=== PATIENT | male | born 1985 | race African-American/Black ===

== ENCOUNTER 2019-02-28 14:26 | Inpatient (IN) | payer OTHER ==
[2019-02-28 14:57] VITALS: BMI 24.3
--- NOTE | 2019-02-28 17:03 | HP ---
CIWA Score Nausea/Vomitin-Mild Nausea/No Vomiting Muscle Tremors: 2 Anxiety: 2 Agitation: 1-Slight > Activity Paroxysmal Sweats: 1-Minimal Palms Moist Orientation: 0-Oriented Tacttile Disturbances: 3-Moderate Itch/Numb/Burn Auditory Disturbances: 0-None Visual Disturbances: 1-Very Mild Sensitivity Headache: 1-Very Mild CIWA-Ar Total Score: 12 - Admission Criteria OASAS Guidelines: Admission for Medically Managed Detox: Requires at least one of the followin. CIWA greater than 12 2. Seizures within the past 24 hours 3. Delirium tremens within the past 24 hours 4. Hallucinations within the past 24 hours 5. Acute intervention needed for co occurring medical disorder 6. Acute intervention needed for co occurring psychiatric disorder 7. Severe withdrawal that cannot be handled at a lower level of care (continued vomiting, continued diarrhea, abnormal vital signs) requiring intravenous medication and/or fluids 8. Admission ROS [facility] Chief Complaint: Withdrawal Allergies/Adverse Reactions: Allergies Allergy/AdvReac Type Severity Reaction Status Date / Time No Known Allergies Allergy Verified 02/28/19 14:44 History of Present Illness: 33 y.o. man with an 5 year history of alcohol dependence is here seeking his first admission to detox. Does not have a significant period of sobriety. Exam Limitations: No Limitations - Ebola screening Have you traveled outside of the country in the last 21 days: No Have you had contact with anyone from an Ebola affected area: No - Review of Systems Constitutional: Chills EENT: reports: Tearing Respiratory: reports: No Symptoms reported Cardiac: reports: No Symptoms Reported GI: reports: No Symptoms Reported : reports: No Symptoms Reported Musculoskeletal: reports: Back Pain Integumentary: reports: No Symptoms Reported Neuro: reports: Numbness Endocrine: reports: No Symptoms Reported Hematology: reports: No Symptoms Reported Psychiatric: reports: Anxious, Depressed Other Systems: Reviewed and Negative Patient History - Patient Medical History Hx Anemia: No Hx Asthma: No Hx Chronic Obstructive Pulmonary Disease (COPD): No Hx Cancer: No Hx Cardiac Disorders: No Hx Congestive Heart Failure: No Hx Hypertension: No Hx Hypercholesterolemia: No Hx Pacemaker: No HX Cerebrovascular Accident: No Hx Seizures: No Hx Dementia: No Hx Diabetes: No Hx Gastrointestinal Disorders: No Hx Liver Disease: No Hx Genitourinary Disorders: No Hx Sexually Transmitted Disorders: No Hx Renal Disease (ESRD): No Hx Thyroid Disease: No Hx Human Immunodeficiency Virus (HIV): No Hx Hepatitis C: No Hx Depression: Yes Hx Suicide Attempt: No Hx Bipolar Disorder: No Hx Schizophrenia: No - Patient Surgical History Past Surgical History: No - PPD History Previous Implant?: No Documented Results: Negative w/o proof - Reproductive History Patient is a Female of Child Bearing Age (11 -55 yrs old): No - Smoking Cessation Smoking history: Current every day smoker Have you smoked in the past 12 months: Yes Aproximately how many cigarettes per day: 10 Initiated information on smoking cessation: Yes 'Breaking Loose' booklet given: 02/28/19 - Substance & Tx. History Hx Alcohol Use: Yes Hx Substance Use: Yes Substance Use Type: Alcohol, Marijuana Hx Substance Use Treatment: No - Substances abused Alcohol Substance route: Oral Frequency: 3-6 times per week Amount used: 1 pint of henessey; 2 cans of beer (24 ounces Age of first use: 27 Date of last use: 02/27/19 Marijuana/Hashish Substance route: Smoking Frequency: 3-6 times per week Amount used: 1 blunt Age of first use: 14 Date of last use: 02/27/19 Family Disease History - Family Disease History Family Disease History: Diabetes: Grandparent (Alcohol dependence ), Other: Grandparent, Father (Alcohol dependence) Admission Physical Exam S - Vital Signs Vital Signs: Vital Signs - 24 hr 02/28/19 02/28/19 14:38 16:33 Temperature 97.4 F L 97.4 F L Pulse Rate 85 85 Respiratory 20 20 Rate Blood Pressure 136/78 136/78 - Physical General Appearance: Yes: Nourished, Appropriately Dressed HEENTM: Yes: Hearing grossly Normal, Normocephalic Respiratory: Yes: Lungs Clear, Normal Breath Sounds, No Respiratory Distress, No Accessory Muscle Use Neck: Yes: No masses,lesions,Nodules Breast: Yes: Breast Exam Deferred Cardiology: Yes: Regular Rhythm, Regular Rate Abdominal: Yes: Normal Bowel Sounds, Non Tender, Flat Genitourinary: Yes: Other (No complaints reported) Back: Yes: Normal Inspection Musculoskeletal: Yes: full range of Motion, Gait Steady Extremities: Yes: Normal Inspection Neurological: Yes: Alert, Normal Mood/Affect, Normal Response Integumentary: Yes: Normal Color, Dry, Warm Lymphatic: Yes: Within Normal Limits - Diagnostic (1) Uncomplicated alcohol dependence Current Visit: Yes Status: Chronic (2) Marijuana dependence Current Visit: Yes Status: Chronic (3) Lupus Current Visit: Yes Status: Chronic (4) Nicotine dependence Current Visit: Yes Status: Chronic (5) Neuropathy Current Visit: Yes Status: Chronic Cleared for Admission S - Detox or Rehab [facility] Level of Care: Medically Managed Detox Regimen/Protocol: Librium Breathalyzer - Breathalyzer Breathalyzer: 0.048 Urine Drug Screen - Test Device Lot number: [id number] Expiration date: 09/25/20 - Control Is test valid?: Yes - Results Drug screen NEGATIVE: No Urine drug screen results: THC-Marijuana Inpatient Rehab Admission - Rehab Decision to Admit Inpatient rehab admission?: No
[2019-02-28] MEDS ORDERED: MAGNESIUM HYDROX 2400MG/30ML ORAL SUSPENSION 30 ML CUP PO PRN (17:31)
[2019-02-28] MEDS ORDERED: hydrOXYzine PAMOATE 25 MG CAPSULE (FP) PO PRN (17:31)
[2019-02-28] MEDS ORDERED: ACETAMINOPHEN 325 MG TABLET (FP) PO PRN ×2 (17:31)
[2019-02-28] MEDS ORDERED: chlordiazePOXIDE HCL 25 MG CAPSULE PO PRN (17:31)
[2019-02-28] MEDS ORDERED: METHOCARBAMOL 500 MG TABLET PO PRN (17:31)
[2019-02-28] MEDS ORDERED: IBUPROFEN 400 MG TABLET (FP) PO PRN (17:31)
[2019-02-28] MEDS ORDERED: MENTHOL/PHENOL 1 EACH UD MM PRN (17:31)
[2019-02-28] MEDS ORDERED: MAG HYDROX/AL HYDROX/SIMETH 30 ML UNIT-DOSE CUP PO PRN (17:31)
[2019-02-28] MEDS ORDERED: NICOTINE POLACRILEX 2 MG GUM BUC PRN (17:31)
[2019-02-28] MEDS ORDERED: MAGNESIUM CITRATE 300 ML BOTTLE PO PRN (17:31)
[2019-02-28] MEDS ORDERED: BISMUTH SUBSALICYLATE 524 MG/30 ML UD PO PRN (17:31)
[2019-02-28] MEDS: chlordiazePOXIDE HCL 25 MG CAPSULE PO SCH (22:12)
[2019-02-28] MEDS: THIAMINE HCL 100 MG TABLET (FP) PO SCH (22:12)
[2019-02-28] MEDS: HYDROXYCHLOROQUINE SO4 200 MG TABLET (FP) PO SCH (23:04)
[2019-03-01] MEDS: chlordiazePOXIDE HCL 25 MG CAPSULE PO SCH ×4 (06:09→22:13)
--- NOTE | 2019-03-01 09:58 | CONSULT ---
[facility] Psychiatric Consult - Data Date of interview: 03/01/19 Admission source: Self-referred Identifying data: Mr Anguiano is a 33 years old single Black male, unemployed receiving food stamp, homeless seeking alcohol and cannabis Substance Abuse History: Reports history of alcohol and marijuana use. Refer to addiction counselor's summary for further information Medical History: Significant for lupus in 2018. Smokes 10 cigaretes daily Psychiatric History: Denies history of previous psychiatric treatment. However, reports suffering from insomnia due to nightmares from traumatic experiences while incarcerated from 2003 to 2010 Physical/Sexual Abuse/Trauma History: Denies history of emotional, physical or sexual as well as DV relationship. No service. Traumatic experience while incarcerated from age 19 to 26 Additional Comment: Reports history of multiple previous arrests including 2 felony convictions on charges of robbery and carjacking. denies being on parole/ probation. However, acknowledges having an open case for which he was guarded about providing details Mental Status Exam - Mental Status Exam Alert and Oriented to: Time, Place, Person Cognitive Function: Fair Patient Appearance: Well Groomed Mood: Depressed, Anxious Affect: Appropriate Patient Behavior: Cooperative Speech Pattern: Clear Voice Loudness: Normal Thought Process: Intact Thought Disorder: Not Present Hallucinations: Denies Suicidal Ideation: Denies Homicidal Ideation: Denies Insight/Judgement: Poor Sleep: Poorly Appetite: Good Muscle strength/Tone: Normal Gait/Station: Normal Psychiatric Findings - Problem List ([place] 1, 2,3) (1) Substance-induced anxiety disorder Current Visit: Yes Status: Acute (2) PTSD (post-traumatic stress disorder) Current Visit: Yes Status: Ruled-out (3) Substance induced mood disorder Current Visit: Yes Status: Acute (4) Substance-induced sleep disorder Current Visit: Yes Status: Acute (5) Uncomplicated alcohol dependence Current Visit: Yes Status: Acute (6) Cannabis dependence Current Visit: Yes Status: Acute (7) Nicotine dependence Current Visit: Yes Status: Chronic (8) Neuropathy Current Visit: Yes Status: Chronic (9) Lupus erythematosus Current Visit: Yes Status: Chronic - Initial Treatment Plan Initial Treatment Plan: 1) Start Belsomra 10 mg po HS prn for insomnia. 2) Continue inpatient detoxification
--- NOTE | 2019-03-01 10:06 | EKG ---
Test Reason : Blood Pressure : / mmHG Vent. Rate : 086 BPM Atrial Rate : 086 BPM P-R Int : 144 ms QRS Dur : 072 ms QT Int : 368 ms P-R-T Axes : 067 046 056 degrees QTc Int : 440 ms NORMAL SINUS RHYTHM WITH SINUS ARRHYTHMIA NORMAL ECG NO PREVIOUS ECGS AVAILABLE Confirmed by CAIO LIVE MD ([id number]) on 03/01/2019 10:06:10 AM Referred By: Confirmed By:CAIO LIVE MD
[2019-03-01] MEDS: PRENATAL VITAMINS W/ FOLIC ACID TABLET (FP) PO SCH (10:08)
[2019-03-01] MEDS: HYDROXYCHLOROQUINE SO4 200 MG TABLET (FP) PO SCH ×2 (10:09→22:13)
[2019-03-01] MEDS: NICOTINE 14 MG/24 HOURS TOPICAL PATCH TD SCH (10:10)
[2019-03-01 10:17] LABS: HEMOGLOBIN 13.4 GM/dL (11.7-16.9); MCH 31.6 pg (25.7-33.7); MCHC 33.4 g/dl (32.0-35.9); MEAN CELL VOLUME 94.7 fl (80-96); MEAN PLT VOLUME 8.8 fl (7.5-11.1); PLATELET COUNT 129 K/MM3 (134-434); RBC 4.23 M/mm3 (4.00-5.60); RDW 13.9 % (11.9-15.9)
[2019-03-01 10:33] LABS: ALBUMIN 3.6 g/dl (3.4-5.0); ALK PHOS 64 U/L (45-117); ANION GAP 5 MMOL/L (8-16); BILIRUBIN,TOTAL 0.7 mg/dL (0.2-1); BLOOD UREA NITROGEN 14 mg/dL (7-18); CALCIUM 9.6 mg/dL (8.5-10.1); CHLORIDE 102 mmol/L (98-107); CO2 32 mmol/L (21-32); CREATININE 1.1 mg/dL (0.55-1.3); GLUCOSE,RANDOM 80 mg/dL (74-106); POTASSIUM 3.7 mmol/L (3.5-5.1); SGOT/AST 36 U/L (15-37); SGPT/ALT 36 U/L (13-61); SODIUM 139 mmol/L (136-145); TOT PROT 7.3 g/dl (6.4-8.2)
--- NOTE | 2019-03-01 12:36 | PN ---
[facility] CI[facility] - CIWA Score Nausea/Vomitin-No Nausea/No Vomiting Muscle Tremors: 2 Anxiety: 3 Agitation: 0-Normal Activity Paroxysmal Sweats: No Perspiration Orientation: 0-Oriented Tacttile Disturbances: 2-Mild Itch/Numbness/Burn Auditory Disturbances: 1-Very Mild Visual Disturbances: 3-Moderate Sensitivity Headache: 0-None Present CIWA-Ar Total Score: 11 S Progress Note (SOAP) Subjective: Interrupted Sleep, Tremors, Body Aches. Objective: PATIENT A & O X 3, OBSERVED AMBULATING ON UNIT UNASSISTED. IN NO ACUTE DISTRESS. 03/01/19 12:38 Vital Signs Temperature 98.2 F 03/01/19 09:26 Pulse Rate 85 03/01/19 09:26 Respiratory Rate 18 03/01/19 09:26 Blood Pressure 114/75 03/01/19 09:26 O2 Sat by Pulse Oximetry (%) Laboratory Tests 03/01/19 03/01/19 03/01/19 07:00 07:00 07:00 WBC 3.0 L RBC 4.23 Hgb 13.4 Hct 40.0 MCV 94.7 MCH 31.6 MCHC 33.4 RDW 13.9 Plt Count 129 L MPV 8.8 Sodium 139 Potassium 3.7 Chloride 102 Carbon Dioxide 32 Anion Gap 5 L BUN 14 Creatinine 1.1 Creat Clearance w eGFR 77.09 Random Glucose 80 Calcium 9.6 Total Bilirubin 0.7 AST 36 ALT 36 Alkaline Phosphatase 64 Total Protein 7.3 Albumin 3.6 RPR Titer Nonreactive LABS NOTED. Assessment: 03/01/19 12:38 WITHDRAWAL SYMPTOMS. THROMBOCYTOPENIA. LEUKOPENIA. 03/01/19 12:38 Plan: CONTINUE DETOX.
[2019-03-01] MEDS: THIAMINE HCL 100 MG TABLET (FP) PO SCH (22:12)
[2019-03-01] MEDS: MELATONIN 5 MG TABLETS PO PRN (22:13)
[2019-03-02] MEDS: chlordiazePOXIDE HCL 25 MG CAPSULE PO SCH ×3 (06:14→17:27)
--- NOTE | 2019-03-02 09:47 | PN ---
[facility] CIWA - CIWA Score Nausea/Vomitin Muscle Tremors: 2 Anxiety: 2 Agitation: 2 Paroxysmal Sweats: 1-Minimal Palms Moist Orientation: 0-Oriented Tacttile Disturbances: 1-Very Mild Itch/Numbness Auditory Disturbances: 1-Very Mild Visual Disturbances: 0-None Headache: 2-Mild CIWA-Ar Total Score: 13 [facility] Progress Note (SOAP) Subjective: alert,irritable,anxious,interrupted sleep Objective: 03/02/19 09:47 Vital Signs Temperature 97.9 F 03/02/19 08:09 Pulse Rate 69 03/02/19 08:09 Respiratory Rate 18 03/02/19 08:09 Blood Pressure 123/67 03/02/19 08:09 O2 Sat by Pulse Oximetry (%) Assessment: 03/02/19 09:47 withdrawal symptom Plan: continue detox
[2019-03-02] MEDS: PRENATAL VITAMINS W/ FOLIC ACID TABLET (FP) PO SCH (10:34)
[2019-03-02] MEDS: HYDROXYCHLOROQUINE SO4 200 MG TABLET (FP) PO SCH ×2 (10:34→22:30)
[2019-03-02] MEDS: NICOTINE 14 MG/24 HOURS TOPICAL PATCH TD SCH (10:35)
[2019-03-02] MEDS: chlordiazePOXIDE HCL 10 MG CAPSULE PO SCH (22:30)
[2019-03-02] MEDS: THIAMINE HCL 100 MG TABLET (FP) PO SCH (22:30)
[2019-03-02] MEDS: MELATONIN 5 MG TABLETS PO PRN (22:31)
[2019-03-02] MEDS ORDERED: chlordiazePOXIDE HCL 10 MG CAPSULE PO PRN (23:00)
[2019-03-03] MEDS: chlordiazePOXIDE HCL 10 MG CAPSULE PO SCH ×2 (06:31→10:27)
[2019-03-03 09:07] VITALS: BP 115/67; PULSE 81; TEMP 98.3
[2019-03-03] MEDS: PRENATAL VITAMINS W/ FOLIC ACID TABLET (FP) PO SCH (10:27)
[2019-03-03] MEDS: HYDROXYCHLOROQUINE SO4 200 MG TABLET (FP) PO SCH (10:27)
[2019-03-03] MEDS: NICOTINE 14 MG/24 HOURS TOPICAL PATCH TD SCH (10:27)
--- NOTE | 2019-03-03 15:30 | PN ---
[facility] CIWA - CIWA Score Nausea/Vomitin-No Nausea/No Vomiting Muscle Tremors: None Anxiety: 0-No Anxiety, at Ease Agitation: 0-Normal Activity Paroxysmal Sweats: No Perspiration Orientation: 0-Oriented Tacttile Disturbances: 1-Very Mild Itch/Numbness Auditory Disturbances: 0-None Visual Disturbances: 0-None Headache: 0-None Present CIWA-Ar Total Score: 1 [facility] Progress Note (SOAP) Subjective: Patient reports that current Withdrawal / Detox symptoms are minimal in degree and that he feels well overall today. Objective: PATIENT A & O X 3, OBSERVED AMBULATING ON UNIT UNASSISTED. IN NO ACUTE DISTRESS. 03/03/19 15:26 Vital Signs Temperature 98.3 F 03/03/19 09:06 Pulse Rate 81 03/03/19 09:06 Respiratory Rate 03/03/19 09:06 Blood Pressure 115/67 03/03/19 09:06 O2 Sat by Pulse Oximetry (%) Laboratory Tests 03/01/19 03/01/19 03/01/19 07:00 07:00 07:00 WBC 3.0 L RBC 4.23 Hgb 13.4 Hct 40.0 MCV 94.7 MCH 31.6 MCHC 33.4 RDW 13.9 Plt Count 129 L MPV 8.8 Sodium 139 Potassium 3.7 Chloride 102 Carbon Dioxide 32 Anion Gap 5 L BUN 14 Creatinine 1.1 Creat Clearance w eGFR 77.09 Random Glucose 80 Calcium 9.6 Total Bilirubin 0.7 AST 36 ALT 36 Alkaline Phosphatase 64 Total Protein 7.3 Albumin 3.6 RPR Titer Nonreactive LABS NOTED. Assessment: 03/03/19 15:26 LEUKOPENIA. TYROMBOCYTOPENIA. PATIENT REPORTS HISTORY OF LUPUS (WITH MEDICAL TREATMENT WITH PLAQUENIL). PATIENT ADVISED TO FOLLOW-UP WITH TREAD BOOKER AFTER DISCHARGE FROM DETOX UNIT FOR LOW WBC AND PLATELET LEVELS NOTED ON ADMISSION LAB ASSESSMENT. PATIENT VERBALIZED UNDERSTANDING OF RECOMMENDATION. COPIES OF RESULTS OF ALL LABS DRAWN WHILE ADMITTED FOR DETOX WILL BE GIVEN TO PATIENT AT TIME OF DISCHARGE FROM DETOX UNIT. COMPLETION OF DETOX REGIMEN. 03/03/19 15:27 Plan: SINCE PATIENT DENIES CURRENT WITHDRAWAL / DETOX SYMPTOMS AND REPORTS THAT HE FEELS WELL OVERALL, AT PATIENT'S REQUEST, HE WAS GRANTED AN EARLY DISCHARGE FROM DETOX UNIT TODAY.
--- NOTE | 2019-03-03 15:36 | DS ---
[facility] Detox Discharge Summary Admission Date: 02/28/19 Discharge Date: 03/03/19 - History Present History: Alcohol Dependence, Cannabis Dependence Additional Comments: PATIENT DENIES CURRENT WITHDRAWAL / DETOX SYMPTOMS AND [id number] THAT HE FEELS WELL OVERALL AT TIME OF DISCHARGE FROM DETOX UNIT. PATIENT REFERRED TO '[facility] ([place], [place]) UNTIL , AT WHICH TIME BED WILL BE AVAILABLE FOR HIM AT '[facility] ([facility]), WHERE HE WILL GO FOR AFTERCARE. PATIENT REPORTS HISTORY OF LUPUS (WITH MEDICAL TREATMENT WITH PLAQUENIL). PATIENT ADVISED TO FOLLOW-UP WITH PEN OR PENCIL ASSEMBLY MACHINE OPERATOR AFTER DISCHARGE FROM DETOX UNIT FOR HISTORY OF LUPUS AND FOR LOW WBC AND PLATELET LEVELS NOTED ON DETOX ADMISSION LAB ASSESSMENT. PATIENT VERBALIZED UNDERSTANDING OF RECOMMENDATION. COPIES OF RESULTS OF ALL LABS DRAWN WHILE ADMITTED FOR DETOX GIVEN TO PATIENT AT TIME OF DISCHARGE FROM DETOX UNIT. PATIENT WAS DISCHARGED FROM DETOX UNIT IN STABLE MEDICAL CONDITION. Pertinent Past History: Lupus, Depression, Nicotine Dependence, Neuropathy, Thrombocytopenia, Leukopenia. - Physical Exam Results Vital Signs: Vital Signs Temperature 98.3 F 03/03/19 09:06 Pulse Rate 81 03/03/19 09:06 Respiratory Rate 19 03/03/19 09:06 Blood Pressure 115/67 03/03/19 09:06 O2 Sat by Pulse Oximetry (%) Pertinent Admission Physical Exam Findings: WITHDRAWAL SYMPTOMS. Laboratory Tests 03/01/19 03/01/19 03/01/19 07:00 07:00 07:00 WBC 3.0 L RBC 4.23 Hgb 13.4 Hct 40.0 MCV 94.7 MCH 31.6 MCHC 33.4 RDW 13.9 Plt Count 129 L MPV 8.8 Sodium 139 Potassium 3.7 Chloride 102 Carbon Dioxide 32 Anion Gap 5 L BUN 14 Creatinine 1.1 Creat Clearance w eGFR 77.09 Random Glucose 80 Calcium 9.6 Total Bilirubin 0.7 AST 36 ALT 36 Alkaline Phosphatase 64 Total Protein 7.3 Albumin 3.6 RPR Titer Nonreactive LABS NOTED. - Treatment Hospital Course: Detox Protocol Followed, Detoxed Safely, Responded well, Discharged Condition Good Patient has Accepted a Rehab Referral to: [facility] ([place], [place]). - Medication Discharge Medications: Ambulatory Orders Hydroxychloroquine Sulfate [Plaquenil] 200 mg PO BID 02/28/19 - Diagnosis (1) Cannabis dependence Status: Acute (2) Leukopenia Status: Acute Qualifiers: Leukopenia type: unspecified Qualified Code(s): D72.819 - Decreased white blood cell count, unspecified (3) Substance induced mood disorder Status: Acute (4) Substance-induced anxiety disorder Status: Acute (5) Substance-induced sleep disorder Status: Acute (6) Thrombocytopenia Status: Acute (7) Uncomplicated alcohol dependence Status: Acute (8) Lupus Status: Chronic (9) Lupus erythematosus Status: Chronic Qualifiers: Lupus erythematosus form: unspecified Qualified Code(s): L93.0 - Discoid lupus erythematosus (10) Marijuana dependence Status: Chronic (11) Neuropathy Status: Chronic (12) Nicotine dependence Status: Chronic Qualifiers: Nicotine product type: cigarettes Substance use status: uncomplicated Qualified Code(s): F17.210 - Nicotine dependence, cigarettes, uncomplicated (13) PTSD (post-traumatic stress disorder) Status: Ruled-out - AMA Did Patient Leave Against Medical Advice: No
[2019-03-03] MEDS ORDERED: chlordiazePOXIDE HCL 10 MG CAPSULE PO SCH (23:00)
== END 2019-03-03 12:31 | disposition left against medical advice (07) | DRG 770 ==
LOC: YASAS 14:26 → Y6N 17:21
PROVIDERS: ADMIT Surgery; ATTEND Surgery
PROC: HZ2ZZZZ Detoxification Services for Substance Abuse Treatment (ICD-10-PCS; principal; 2019-02-28)
DX: F10.230 Alcohol dependence with withdrawal, uncomplicated (principal); F12.20 Cannabis dependence, uncomplicated; F17.210 Nicotine dependence, cigarettes, uncomplicated; F19.24 Other psychoactive substance dependence with psychoactive substance-induced mood disorder; F19.282 Other psychoactive substance dependence with psychoactive substance-induced sleep disorder; F43.10 Post-traumatic stress disorder, unspecified; D72.819 Decreased white blood cell count, unspecified; D69.6 Thrombocytopenia, unspecified; L93.0 Discoid lupus erythematosus; G62.9 Polyneuropathy, unspecified
CPT/HCPCS: 36415; 80053; 85027; 86593; 93005; 93010

== ENCOUNTER 2025-03-26 12:29 | Inpatient (IN) | payer OTHER ==
[2025-03-26 13:00] VITALS: BMI 20.5
[2025-03-26] MEDS ORDERED: DICYCLOMINE HCL 10 MG CAPSULE PO PRN (13:47)
[2025-03-26] MEDS ORDERED: LOPERAMIDE HCL 2 MG CAPSULE PO PRN (13:47)
[2025-03-26] MEDS ORDERED: MAG HYDROX/AL HYDROX/SIMETH 30 ML UNIT-DOSE CUP PO PRN (13:47)
[2025-03-26] MEDS ORDERED: POLYETHYLENE GLYCOL (HEALTHYLAX) 3350 17 GM PACKET PO PRN (13:47)
[2025-03-26] MEDS ORDERED: ONDANSETRON *ODT* 4 MG TABLET SL PRN (13:47)
[2025-03-26] MEDS ORDERED: BENZOCAINE/MENTHOL (CHLORASEPTIC ) LOZENGE MM PRN (13:47)
[2025-03-26] MEDS ORDERED: ACETAMINOPHEN 325 MG TABLET (FP) PO PRN (13:47)
[2025-03-26] MEDS ORDERED: BENZONATATE 200 MG CAPSULE PO PRN (13:47)
[2025-03-26] MEDS ORDERED: MAGNESIUM HYDROX 2400MG/30ML ORAL SUSPENSION 30 ML CUP PO PRN (13:47)
[2025-03-26] MEDS ORDERED: hydrOXYzine PAMOATE 25 MG CAPSULE (FP) PO PRN (13:47)
[2025-03-26] MEDS ORDERED: guaiFENesin 600 MG TABLET.ER (FP) PO PRN (13:47)
[2025-03-26] MEDS ORDERED: NICOTINE POLACRILEX 2 MG LOZENGE BC PRN (13:47)
[2025-03-26] MEDS ORDERED: NALOXONE (NARCAN) HCL 4 MG/0.1 ML SPRAY NS PRN (13:47)
[2025-03-26] MEDS ORDERED: NICOTINE POLACRILEX 2 MG GUM BUC PRN (13:47)
[2025-03-26] MEDS ORDERED: BISMUTH SUBSALICYLATE 524 MG/30 ML PO PRN (13:47)
[2025-03-26] MEDS: MELATONIN 5 MG TABLETS PO SCH (22:16)
[2025-03-26] MEDS: THIAMINE 100 MG TABLET PO SCH (22:16)
[2025-03-26] MEDS: METHOCARBAMOL 500 MG TABLET PO PRN (22:16)
[2025-03-27 09:00] LABS: HEMATOCRIT 39.2 % (40.1-51.0); HEMOGLOBIN 12.5 g/dL (13.7-17.5); MCHC 31.9 g/dl (32.3-36.5); MEAN CELL VOLUME 100.3 fl (79.0-92.2); MEAN PLT VOLUME 10.1 fl (9.4-12.4); PLATELET COUNT 210 x10^3/uL (163-337); RDW 13.7 % (12.0-15.6)
[2025-03-27 09:03] LABS: CHLORIDE 106 mmol/L (98-107); POTASSIUM 4.5 mmol/L (3.5-5.1); SODIUM 140 mmol/L (136-145)
[2025-03-27 09:05] LABS: CALCIUM 10.3 mg/dL (8.5-10.1)
[2025-03-27 09:07] LABS: ANION GAP 4 mmol/L (4-13); BLOOD UREA NITROGEN 12.4 mg/dL (7-18); CO2 31 mmol/L (21-32); GLUCOSE,RANDOM 135 mg/dL (74-106)
[2025-03-27 09:09] LABS: CREATININE 1.3 mg/dL (0.55-1.3); SGOT/AST 54 U/L (15-37); SGPT/ALT 55 U/L (13-61)
[2025-03-27 09:11] LABS: BILIRUBIN,TOTAL 0.6 mg/dL (0.2-1)
[2025-03-27 09:12] LABS: ALK PHOS 62 U/L (45-117)
[2025-03-27] MEDS ORDERED: chlordiazePOXIDE HCL 25 MG CAPSULE PO PRN (09:46)
[2025-03-27 10:08] LABS: TOT PROT 7.6 g/dl (6.4-8.2)
[2025-03-27] MEDS: PRENATAL VITAMINS W/ FOLIC ACID TABLET (FP) PO SCH (10:28)
[2025-03-27] MEDS: chlordiazePOXIDE HCL 25 MG CAPSULE PO SCH (10:29)
[2025-03-28] MEDS: chlordiazePOXIDE HCL 25 MG CAPSULE PO SCH (05:12)
[2025-03-29] MEDS: chlordiazePOXIDE HCL 10 MG CAPSULE PO SCH (05:30)
[2025-03-29] MEDS: LISINOPRIL 20 MG TABLET PO SCH (09:58)
[2025-03-30] MEDS ORDERED: chlordiazePOXIDE HCL 10 MG CAPSULE PO PRN
[2025-03-30] MEDS: chlordiazePOXIDE HCL 10 MG CAPSULE PO SCH (05:19)
[2025-03-30] MEDS: NALTREXONE HCL 50 MG TABLET PO ONE (10:30)
[2025-03-30 11:17] VITALS: RESP 18
[2025-03-31] MEDS: chlordiazePOXIDE HCL 10 MG CAPSULE PO ONE (05:16)
[2025-03-31] MEDS: NALTREXONE HCL 50 MG TABLET PO SCH (09:17)
[2025-03-31 09:24] VITALS: BP 133/87; PULSE 89; TEMP 97.8
== END 2025-03-31 09:25 | disposition home or self-care (01) | DRG 897 ==
LOC: YASAS 12:29 → Y3N 14:37
PROVIDERS: ADMIT Neuromusculoskeletal Medicine & OMM; ATTEND Allergy & Immunology
PROC: HZ2ZZZZ Detoxification Services for Substance Abuse Treatment (ICD-10-PCS; principal; 2025-03-26)
DX: F10.230 Alcohol dependence with withdrawal, uncomplicated (principal); Z59.00 Homelessness unspecified; F12.20 Cannabis dependence, uncomplicated; F17.210 Nicotine dependence, cigarettes, uncomplicated; I10 Essential (primary) hypertension; L93.0 Discoid lupus erythematosus; Z56.0 Unemployment, unspecified
CPT/HCPCS: 36415; 80053; 80305; 80307; 85027; 86780; 93005; 93010